=== PATIENT | female | born 1940 | race Caucasian/White ===

== ENCOUNTER → 2016-07-18 | Outpatient (CLI) | payer MEDICARE, MEDICAID ==
[~2016-07-18] MED LIST: ACET325T51 PO; ARIP5TAB PO; BENZ200C36 PO; BRIM15DR8 BOTH EYES; BUPR150T3 PO; CLON0.5T23 PO; DOCU-118 PO; ESCI10TA PO; FURO40TA70 PO; GABA-338 PO; GUAI120015 PO; GUAI5LIQ PO; HALO5AMP3 IM; HYDR-4246 PO; LATA2.5D7 BOTH EYES; LISI-127 PO; LORA-204 PO; LORA0.5T2 PO; LORA0.5T86 PO; LORA10TA7 PO; MENT118G TOP; METO2.5T2 PO; MULT-806 PO; OMEP-29 PO; OXYC5CAP3 PO; POTA10CA37 PO
[2016-07-18 06:53] LABS: ANION GAP 11 MEQ/L (5-15); BUN/CREATININE RATIO 20 RATIO (6-26); CHLORIDE 97 MEQ/L (98-107); CO2 - CARBON DIOXIDE 35 MEQ/L (22-30); CREATININE 1.7 MG/DL (0.7-1.2); GLOMERULAR FILTRATION RATE 29; GLUCOSE 111 MG/DL (65-110); POTASSIUM 3.3 MEQ/L (3.6-5); SODIUM 143 MEQ/L (134-144)
== END ==
LOC: LABNH.PM 01:09
PROVIDERS: ATTEND Family Medicine
DX: R35.8 Other polyuria (principal)
CPT/HCPCS: 36415; 80048; P9604

== ENCOUNTER → 2016-07-25 | Outpatient (CLI) | payer MEDICARE, MEDICAID ==
[2016-07-25 07:09] LABS: POTASSIUM 3.3 MEQ/L (3.6-5)
== END ==
LOC: LABNH.PM 00:43
PROVIDERS: ATTEND Family Medicine
DX: E87.6 Hypokalemia (principal)
CPT/HCPCS: 36415; 84132; P9604